=== PATIENT | female | born 1960 | race Two or more races ===

== ENCOUNTER → 2017-02-25 | Outpatient (CLI) | payer OTHER ==
[~2017-02-25] MED LIST: CIPRO PO; DARVOCET-N 1001 TAB PO; FIORICET W/CODE1 CAP PO; KLONOPIN PO; MEDROL PO; NABUMETONE PO; PAXIL PO; PHENERGAN PO; TYLOX 5/500 CAP1 CAP PO; ZANTAC PO
--- NOTE | ~2017-02-25 | US24 ---
[facility] A Service of [facility] RADIOLOGY TEXT RESULTS PATIENT: NATHANAEL LOPEZ LOCATION: [facility] : 58 UNIT #: [id number] AGE: [address]: Saul Neff MD SEX: F ORDER DR: [id number] [place], [place] [address] [id number] O MR#: [id number] Acc #: [id number] NAME: NATHANAEL LOPEZ : 1960 SEX: F STUDY DATE/TIME: 02/25/2017 12:15 UNIT: [facility] ROOM: STUDY DESCRIPTION: US Breast Unilateral Attending Physician: Saul Neff M.D. Referring Physician: Saul Neff M.D. Ordering Physician: Saul Neff M.D. Primary Care Physician: Saul Neff M.D. MEDICAL IMAGING REPORT This report is preliminary unless electronic signature is present EXAM Left breast ultrasound. INDICATIONS Follow up left breast masses. Status post biopsy. PROCEDURE Barlow-scale imaging of the left breast in the area of previously demonstrated masses at 11 o'clock and subareolar region. COMPARISON 08/30/2016 FINDINGS No sonographic abnormality. Previously demonstrated masses are not seen. IMPRESSION Previously demonstrated masses are not seen. Refer to the separately dictated diagnostic mammogram for additional details. Benign left breast ultrasound. Patients over the age of 40 are entered into a reminder system with target due date for the next mammogram. A result letter will also be sent to the patient. BIRADS: 2 Benign findings. Dictated by... Orlando Hernandez M.D. THIS IS AN ELECTRONICALLY VERIFIED REPORT Orlando Hernandez M.D. at 02/26/2017 7:13 AM [facility] A Service [facility] RADIOLOGY TEXT RESULTS PATIENT: NATHANAEL LOPEZ LOCATION: [facility] : 58 UNIT #: [id number] AGE: [address]: Saul Neff MD SEX: F ORDER DR: Daisy TD: 02/25/2017 20:44 JOB #: [id number] MEDICAL IMAGING REPORT Page 1 of 1 COPY
--- NOTE | ~2017-02-25 | MY24 ---
[facility] A Service of [facility] RADIOLOGY TEXT RESULTS PATIENT: NATHANAEL LOPEZ LOCATION: [facility] : 58 UNIT #: [id number] AGE: [address]: Saul Neff MD SEX: F ORDER DR: [id number] [facility] [address] [place], [place] [address] [id number] O MR#: [id number] Acc #: [id number] NAME: NATHANAEL LOPEZ : 1960 SEX: F STUDY DATE/TIME: 02/25/2017 11:53 UNIT: [facility] ROOM: STUDY DESCRIPTION: [facility] A[facility] W/ CAD UNI Attending Physician: Saul Neff M.D. Referring Physician: Saul Neff M.D. Ordering Physician: Saul Neff M.D. Primary Care Physician: Saul Neff M.D. MEDICAL IMAGING REPORT This report is preliminary unless electronic signature is present REVISED REPORT EXAM Left digital diagnostic mammogram INDICATIONS Left breast masses. Status post biopsy. Followup. TECHNIQUE CC, MLO and true lateral views of the left breast obtained on a digital mammography unit. FDA-approved CAD device utilized. COMPARISON 09/03/2016. FINDINGS Heterogeneous fibroglandular density could obscure a small mass. There are 2 biopsy marker clips in the left breast that are not significantly changed in position since the previous study. No new dominant mass or suspicious calcification. Targeted ultrasound evaluation of the left breast shows no sonographic abnormality. Previously demonstrated masses on 08/30/2016 are not seen on the current study. IMPRESSION Benign left breast diagnostic mammogram and ultrasound. Recommend patient return to yearly screening. BIRADS: 2 Benign Finding. [facility] A Service [facility] RADIOLOGY TEXT RESULTS PATIENT: NATHANAEL LOPEZ LOCATION: [facility] : 58 UNIT #: [id number] AGE: [address]: Saul Neff MD SEX: F ORDER DR: *ACCESSION NUMBER MODIFED. Dictated by... Orlando Hernandez M.D. THIS IS AN ELECTRONICALLY VERIFIED REPORT Orlando Hernandez M.D. at 05/10/2017 6:06 AM [facility]ahara TD: 02/25/2017 21:06 JOB #: [id number] CC: [email or web address] Please Delete MEDICAL IMAGING REPORT Page 1 of 1 COPY
== END | disposition home or self-care (01) ==
LOC: CMAM 10:44
DX: N63 Unspecified lump in breast (principal)
CPT/HCPCS: 76641; G0206